=== PATIENT | female | born 1945 | race Caucasian/White ===

== ENCOUNTER 2022-06-04 13:52 | Inpatient (IN) | payer MEDICARE, OTHER ==
[~2022-06-04] VITALS: Ht 162.6 cm; Wt 47.2 kg
[2022-06-04 14:02] VITALS: BP_SYST 116
[2022-06-04] MEDS ORDERED: IPRATROPIUM/ALBUTEROL SULFATE 3 ML AMPUL.NEB (DUONEB) INH ONE (14:30)
[2022-06-04] MEDS ORDERED: methylPREDNISolone SOD SUCC/PF 62.5 MG/ML VIAL IVP ONE (14:30)
[2022-06-04] MEDS ORDERED: dilTIAZem HCL IVP 5 MG/ML VIAL IVP ONE ×2 (14:30→15:15)
[2022-06-04] MEDS ORDERED: NACL 0.9% 1,000 ML IV ONE (14:30)
[2022-06-04 15:22] LABS: HEMATOCRIT 41.9 % (36-48); MEAN CORPUSCULAR HEMOGLOBIN 30 pg (27-31); MEAN CORPUSCULAR HGB CONC 34 % (32-36); MEAN CORPUSCULAR VOLUME 88 fL (79.0-98.0); PLATELET COUNT (AUTO) 422 K/uL (130-430); RED BLOOD CELL COUNT(AUTO) 4.76 MIL/uL (4.2-6.2); RED CELL DISTRIBUTION WIDTH 13.4 % (9.0-15.0); WHITE BLOOD COUNT (AUTO) 25.6 K/uL (4.8-10.8)
[2022-06-04 15:30] LABS: ANION GAP 6 (5-15); CALCIUM 9.9 mg/dL (8.4-11.0); CHLORIDE 92 mmol/L (98-107); CREATININE 0.52 mg/dL (0.55-1.30); GLUCOSE 106 mg/dL (70-99); UREA NITROGEN, BLOOD 42 mg/dL (8-21)
[2022-06-04] MEDS ORDERED: CEFEPIME 2 GM in D5W 100 ML IV ONE (15:30)
[2022-06-04 15:31] LABS: INR 1.1 (0.8-1.2); PROTHROMBIN TIME 11.3 SECS (9.5-12.5)
[2022-06-04 15:44] LABS: ALANINE AMINOTRANSFERASE 12 U/L (12-78); ALBUMIN 2.9 g/dL (3.4-4.8); ASPARTATE AMINOTRANSFERASE 11 U/L (10-37); FREE T4 (FREE THYROXINE) 1.1 ng/dL (0.6-1.6); LIPASE 19 U/L (73-393); THYROID STIMULATING HORMONE 2.28 uIu/mL (0.34-4.82); TOTAL BILIRUBIN 0.6 mg/dL (0.0-1.0)
[2022-06-04 15:45] LABS: BAND % (MANUAL) 11 % (0-6); BASOPHILS % (MANUAL) 0 % (0-2); EOSINOPHILS % (MANUAL) 0 % (0-7); MONOCYTES % (MANUAL) 9 % (0-11)
[2022-06-04 16:10] LABS: BILIRUBIN,URINE 1+ (NEGATIVE); COLOR,URINE YELLOW (YELLOW); GLUCOSE,URINE NEGATIVE (NEGATIVE); KETONES,URINE 1+ (NEGATIVE); LEUKOCYTE ESTERASE ,URINE NEGATIVE (NEGATIVE); NITRITE, URINE NEGATIVE (NEGATIVE); PROTEIN URINE 1+ (NEGATIVE)
[2022-06-04 16:30] LABS: BLOOD, URINE TRACE (NEGATIVE)
[2022-06-04 16:31] LABS: CLARITY/URINE HAZY (CLEAR)
[2022-06-04 16:32] LABS: RBC,URINE 0-3 /HPF (0-3); WBC,URINE 0-3 /HPF (0-3)
[2022-06-04 16:33] LABS: BACTERIA,URINE FEW /HPF (None Seen); MUCUS,URINE None Seen /LPF (None Seen)
[2022-06-04 17:08] LABS: LYMPHOCYTES % (MANUAL) 0 % (20-46)
[2022-06-04] MEDS ORDERED: DIGOXIN 0.5 MG/2 ML AMP IVP ONE (18:30)
[2022-06-04] MEDS ORDERED: IPRATROPIUM/ALBUTEROL SULFATE 3 ML AMPUL.NEB (DUONEB) INH PRN (19:00)
[2022-06-04 20:27] VITALS: BP_SYST 129
[2022-06-04] MEDS: METHYLPREDNISOLONE SOD SUCC 40 MG/ML VIAL IVP SCH (21:50)
[2022-06-04] MEDS: FAMOTIDINE PF 20 MG/2 ML VIAL IVP SCH (22:06)
[2022-06-05] VITALS (7 sets, daily range): BP systolic 99–115
[2022-06-05] MEDS ORDERED: PIPERACILLIN/TAZOBACTAM 3.375 GM/VIAL (ZOSYN) IV ONE ×2 (00:28→06:10)
[2022-06-05] MEDS: PIPERACILLIN/TAZO 3.375/DEX-IS 50 ML IV SCH ×4 (00:30→19:21)
[2022-06-05] MEDS: IPRATROPIUM/ALBUTEROL SULFATE 3 ML AMPUL.NEB (DUONEB) INH SCH ×4 (01:34→19:02)
[2022-06-05] MEDS: METHYLPREDNISOLONE SOD SUCC 40 MG/ML VIAL IVP SCH ×3 (06:15→21:06)
[2022-06-05] MEDS: APIXABAN 2.5 MG TABLET PO SCH ×2 (09:00→21:03)
[2022-06-05 10:20] LABS: BASOPHILS % (AUTO) 0.1 % (0.0-2.0); HEMATOCRIT 36.8 % (36-48); HEMOGLOBIN 12.2 g/dL (12.0-16.0); LYMPHOCYTES # (AUTO) 0.4 K/uL (1.0-5.5); LYMPHOCYTES % (AUTO) 1.7 % (20.5-51.5); MEAN CORPUSCULAR HEMOGLOBIN 30 pg (27-31); MEAN CORPUSCULAR HGB CONC 33 % (32-36); MEAN CORPUSCULAR VOLUME 89 fL (79.0-98.0); MONOCYTES # (AUTO) 1.5 K/uL (0.0-1.0); MONOCYTES % (AUTO) 6.6 % (1.7-9.3); NEUTROPHILS # (AUTO) 21.1 K/uL (1.8-7.7); PLATELET COUNT (AUTO) 357 K/uL (130-430); RED BLOOD CELL COUNT(AUTO) 4.14 MIL/uL (4.2-6.2); RED CELL DISTRIBUTION WIDTH 13.4 % (9.0-15.0)
[2022-06-05 10:21] LABS: NEUTROPHILS % (AUTO) 91.6 % (40.0-70.0)
[2022-06-05] MEDS: D5/0.45 NS 1,000 ML IV SCH (10:24)
[2022-06-05 10:32] LABS: ANION GAP 3 (5-15); CALCIUM 9.6 mg/dL (8.4-11.0); CHLORIDE 100 mmol/L (98-107); CREATININE 0.41 mg/dL (0.55-1.30); GLUCOSE 138 mg/dL (70-99); UREA NITROGEN, BLOOD 28 mg/dL (8-21)
[2022-06-05 10:37] LABS: ALANINE AMINOTRANSFERASE 12 U/L (12-78); ALBUMIN 2.5 g/dL (3.4-4.8); ASPARTATE AMINOTRANSFERASE 9 U/L (10-37); TOTAL BILIRUBIN 0.4 mg/dL (0.0-1.0)
[2022-06-05] MEDS ORDERED: dilTIAZem HCL IVP 5 MG/ML VIAL IVP ONE (11:15)
[2022-06-05] MEDS: dilTIAZem HCL IVP 5 MG/ML VIAL IVP PRN (12:34)
[2022-06-05] MEDS ORDERED: METOPROLOL SUCCINATE 25 MG TAB.SR.24H (TOPROL XL) PO ONE (13:15)
[2022-06-05] MEDS ORDERED: iohexoL 350 mgI/mL, 100 ML INFUS..BTL IV ONE (13:35)
[2022-06-05] MEDS: FAMOTIDINE PF 20 MG/2 ML VIAL IVP SCH (21:06)
[2022-06-06] VITALS (17 sets, daily range): BP systolic 92–126
[2022-06-06] MEDS: IPRATROPIUM/ALBUTEROL SULFATE 3 ML AMPUL.NEB (DUONEB) INH SCH ×4 (00:52→20:08)
[2022-06-06] MEDS: PIPERACILLIN/TAZO 3.375/DEX-IS 50 ML IV SCH ×5 (05:17→23:55)
[2022-06-06] MEDS: METHYLPREDNISOLONE SOD SUCC 40 MG/ML VIAL IVP SCH ×3 (05:18→23:21)
[2022-06-06 05:32] LABS: BASOPHILS % (AUTO) 0.1 % (0.0-2.0); HEMATOCRIT 35.3 % (36-48); HEMOGLOBIN 11.5 g/dL (12.0-16.0); LYMPHOCYTES # (AUTO) 0.5 K/uL (1.0-5.5); LYMPHOCYTES % (AUTO) 2.3 % (20.5-51.5); MEAN CORPUSCULAR HEMOGLOBIN 29 pg (27-31); MEAN CORPUSCULAR HGB CONC 33 % (32-36); MEAN CORPUSCULAR VOLUME 89 fL (79.0-98.0); MONOCYTES # (AUTO) 1.2 K/uL (0.0-1.0); MONOCYTES % (AUTO) 5.5 % (1.7-9.3); NEUTROPHILS # (AUTO) 19.9 K/uL (1.8-7.7); NEUTROPHILS % (AUTO) 92.1 % (40.0-70.0); PLATELET COUNT (AUTO) 337 K/uL (130-430); RED BLOOD CELL COUNT(AUTO) 3.99 MIL/uL (4.2-6.2); RED CELL DISTRIBUTION WIDTH 13.3 % (9.0-15.0); WHITE BLOOD COUNT (AUTO) 21.6 K/uL (4.8-10.8)
[2022-06-06 06:02] LABS: ANION GAP 3 (5-15); CALCIUM 8.6 mg/dL (8.4-11.0); CHLORIDE 99 mmol/L (98-107); CREATININE 0.38 mg/dL (0.55-1.30); GLUCOSE 155 mg/dL (70-99); UREA NITROGEN, BLOOD 23 mg/dL (8-21)
[2022-06-06] MEDS: D5/0.45 NS 1,000 ML IV SCH (09:43)
[2022-06-06] MEDS: APIXABAN 2.5 MG TABLET PO SCH ×2 (09:44→23:19)
[2022-06-06] MEDS: METOPROLOL SUCCINATE 25 MG TAB.SR.24H (TOPROL XL) PO SCH (09:44)
[2022-06-06] MEDS: DILTIAZEM HCL 30 MG TABLET PO SCH ×2 (13:41→23:21)
[2022-06-06] MEDS: FAMOTIDINE PF 20 MG/2 ML VIAL IVP SCH (23:20)
[2022-06-07 00:23] VITALS: BP_SYST 101
[2022-06-07] MEDS: D5/0.45 NS 1,000 ML IV SCH (03:18)
[2022-06-07 05:59] LABS: BASOPHILS % (AUTO) 0.1 % (0.0-2.0); HEMATOCRIT 35.8 % (36-48); HEMOGLOBIN 11.9 g/dL (12.0-16.0); LYMPHOCYTES # (AUTO) 0.6 K/uL (1.0-5.5); LYMPHOCYTES % (AUTO) 3.4 % (20.5-51.5); MEAN CORPUSCULAR HEMOGLOBIN 29 pg (27-31); MEAN CORPUSCULAR HGB CONC 33 % (32-36); MEAN CORPUSCULAR VOLUME 88 fL (79.0-98.0); MONOCYTES # (AUTO) 1.1 K/uL (0.0-1.0); MONOCYTES % (AUTO) 6.1 % (1.7-9.3); NEUTROPHILS % (AUTO) 90.4 % (40.0-70.0); PLATELET COUNT (AUTO) 363 K/uL (130-430); RED BLOOD CELL COUNT(AUTO) 4.05 MIL/uL (4.2-6.2); RED CELL DISTRIBUTION WIDTH 13.6 % (9.0-15.0); WHITE BLOOD COUNT (AUTO) 18.8 K/uL (4.8-10.8)
[2022-06-07 06:17] LABS: ANION GAP 5 (5-15); CALCIUM 8.6 mg/dL (8.4-11.0); CHLORIDE 97 mmol/L (98-107); CREATININE 0.38 mg/dL (0.55-1.30); GLUCOSE 133 mg/dL (70-99); UREA NITROGEN, BLOOD 16 mg/dL (8-21)
[2022-06-07] MEDS: IPRATROPIUM/ALBUTEROL SULFATE 3 ML AMPUL.NEB (DUONEB) INH SCH ×4 (06:44→19:37)
[2022-06-07] MEDS: METHYLPREDNISOLONE SOD SUCC 40 MG/ML VIAL IVP SCH ×3 (06:47→21:12)
[2022-06-07] MEDS: DILTIAZEM HCL 30 MG TABLET PO SCH ×3 (06:47→21:13)
[2022-06-07] MEDS: PIPERACILLIN/TAZO 3.375/DEX-IS 50 ML IV SCH ×4 (06:47→23:32)
[2022-06-07 07:46] VITALS: BP_SYST 127
[2022-06-07 08:00] VITALS: BP_SYST 113
[2022-06-07] MEDS: METOPROLOL SUCCINATE 25 MG TAB.SR.24H (TOPROL XL) PO SCH (08:55)
[2022-06-07] MEDS: APIXABAN 2.5 MG TABLET PO SCH ×2 (08:59→21:14)
[2022-06-07] MEDS ORDERED: ACETYLCYSTEINE 10% 4 ML VIAL (RT) INH SCH (09:45)
[2022-06-07] MEDS ORDERED: BENZOCAINE/MENTHOL 1 EACH LOZENGE PO PRN (09:45)
[2022-06-07] MEDS: ACETYLCYSTEINE 20% 4 ML VIAL (RT) INH SCH ×3 (11:00→19:00)
[2022-06-07 11:22] VITALS: BP_SYST 125
[2022-06-07 15:23] VITALS: BP_SYST 113
[2022-06-07 20:00] VITALS: BP_SYST 118
[2022-06-07] MEDS: FAMOTIDINE PF 20 MG/2 ML VIAL IVP SCH (21:13)
[2022-06-08 00:33] VITALS: BP_SYST 113
[2022-06-08] MEDS: D5/0.45 NS 1,000 ML IV SCH ×2 (04:58→18:30)
[2022-06-08] MEDS: DILTIAZEM HCL 30 MG TABLET PO SCH ×4 (05:48→23:32)
[2022-06-08] MEDS: METHYLPREDNISOLONE SOD SUCC 40 MG/ML VIAL IVP SCH ×3 (05:48→21:10)
[2022-06-08] MEDS: PIPERACILLIN/TAZO 3.375/DEX-IS 50 ML IV SCH ×4 (05:49→23:30)
[2022-06-08] MEDS: ACETYLCYSTEINE 20% 4 ML VIAL (RT) INH SCH ×4 (07:29→23:49)
[2022-06-08] MEDS: IPRATROPIUM/ALBUTEROL SULFATE 3 ML AMPUL.NEB (DUONEB) INH SCH ×5 (07:30→23:44)
[2022-06-08 08:00] VITALS: BP_SYST 130
[2022-06-08] MEDS: METOPROLOL SUCCINATE 25 MG TAB.SR.24H (TOPROL XL) PO SCH (08:15)
[2022-06-08] MEDS: APIXABAN 2.5 MG TABLET PO SCH ×2 (08:15→21:09)
[2022-06-08 11:22] VITALS: BP_SYST 118
[2022-06-08] MEDS ORDERED: ACETYLCYSTEINE 20% 4 ML VIAL (RT) INH SCH (15:00)
[2022-06-08 15:20] VITALS: BP_SYST 111
[2022-06-08 20:00] VITALS: BP_SYST 128
[2022-06-08] MEDS: FAMOTIDINE PF 20 MG/2 ML VIAL IVP SCH (21:10)
[2022-06-08] MEDS: dilTIAZem HCL IVP 5 MG/ML VIAL IVP PRN (21:12)
[2022-06-09] VITALS: BP_SYST 139
[2022-06-09] MEDS: PIPERACILLIN/TAZO 3.375/DEX-IS 50 ML IV SCH ×3 (06:03→17:21)
[2022-06-09] MEDS: METHYLPREDNISOLONE SOD SUCC 40 MG/ML VIAL IVP SCH ×3 (06:05→21:42)
[2022-06-09] MEDS: DILTIAZEM HCL 30 MG TABLET PO SCH ×3 (06:05→17:22)
[2022-06-09 06:24] LABS: BASOPHILS % (AUTO) 0.1 % (0.0-2.0); HEMATOCRIT 38.4 % (36-48); HEMOGLOBIN 12.7 g/dL (12.0-16.0); LYMPHOCYTES # (AUTO) 0.5 K/uL (1.0-5.5); LYMPHOCYTES % (AUTO) 3.1 % (20.5-51.5); MEAN CORPUSCULAR HEMOGLOBIN 29 pg (27-31); MEAN CORPUSCULAR HGB CONC 33 % (32-36); MEAN CORPUSCULAR VOLUME 88 fL (79.0-98.0); MONOCYTES % (AUTO) 5.8 % (1.7-9.3); NEUTROPHILS # (AUTO) 15.6 K/uL (1.8-7.7); PLATELET COUNT (AUTO) 354 K/uL (130-430); RED BLOOD CELL COUNT(AUTO) 4.36 MIL/uL (4.2-6.2); RED CELL DISTRIBUTION WIDTH 13.5 % (9.0-15.0); WHITE BLOOD COUNT (AUTO) 17.2 K/uL (4.8-10.8)
[2022-06-09] MEDS: ACETYLCYSTEINE 20% 4 ML VIAL (RT) INH SCH ×3 (07:00→19:00)
[2022-06-09 07:02] LABS: ANION GAP 2 (5-15); CALCIUM 8.5 mg/dL (8.4-11.0); CHLORIDE 99 mmol/L (98-107); CREATININE 0.43 mg/dL (0.55-1.30); GLUCOSE 148 mg/dL (70-99); UREA NITROGEN, BLOOD 12 mg/dL (8-21)
[2022-06-09] MEDS: IPRATROPIUM/ALBUTEROL SULFATE 3 ML AMPUL.NEB (DUONEB) INH SCH ×3 (07:24→19:25)
[2022-06-09 07:44] VITALS: BP_SYST 145
[2022-06-09] MEDS: METOPROLOL SUCCINATE 25 MG TAB.SR.24H (TOPROL XL) PO SCH (08:42)
[2022-06-09] MEDS: APIXABAN 2.5 MG TABLET PO SCH ×2 (08:43→20:28)
[2022-06-09 11:21] VITALS: BP_SYST 126
[2022-06-09] MEDS: dilTIAZem HCL IVP 5 MG/ML VIAL IVP PRN ×2 (14:15→20:31)
[2022-06-09 15:29] VITALS: BP_SYST 135
[2022-06-09] MEDS: D5/0.45 NS 1,000 ML IV SCH (16:07)
[2022-06-09 21:00] VITALS: BP_SYST 136; BP_SYST 98
[2022-06-09] MEDS: FAMOTIDINE PF 20 MG/2 ML VIAL IVP SCH (21:41)
[2022-06-10] MEDS: PIPERACILLIN/TAZO 3.375/DEX-IS 50 ML IV SCH ×5 (00:29→23:34)
[2022-06-10] MEDS: DILTIAZEM HCL 30 MG TABLET PO SCH ×5 (00:30→23:35)
[2022-06-10] MEDS: ACETYLCYSTEINE 20% 4 ML VIAL (RT) INH SCH ×4 (01:00→19:00)
[2022-06-10] MEDS: IPRATROPIUM/ALBUTEROL SULFATE 3 ML AMPUL.NEB (DUONEB) INH SCH ×4 (01:00→19:31)
[2022-06-10] MEDS: METHYLPREDNISOLONE SOD SUCC 40 MG/ML VIAL IVP SCH ×3 (05:41→21:05)
[2022-06-10 06:00] VITALS: BP_SYST 133
[2022-06-10 07:21] LABS: BASOPHILS # (AUTO) 0.1 K/uL (0.0-0.2); BASOPHILS % (AUTO) 0.2 % (0.0-2.0); HEMATOCRIT 41.7 % (36-48); HEMOGLOBIN 13.6 g/dL (12.0-16.0); LYMPHOCYTES # (AUTO) 0.8 K/uL (1.0-5.5); LYMPHOCYTES % (AUTO) 3.6 % (20.5-51.5); MEAN CORPUSCULAR HEMOGLOBIN 29 pg (27-31); MEAN CORPUSCULAR HGB CONC 33 % (32-36); MEAN CORPUSCULAR VOLUME 89 fL (79.0-98.0); MONOCYTES # (AUTO) 0.9 K/uL (0.0-1.0); MONOCYTES % (AUTO) 4.2 % (1.7-9.3); NEUTROPHILS # (AUTO) 19.6 K/uL (1.8-7.7); PLATELET COUNT (AUTO) 380 K/uL (130-430); RED CELL DISTRIBUTION WIDTH 13.8 % (9.0-15.0); WHITE BLOOD COUNT (AUTO) 21.3 K/uL (4.8-10.8)
[2022-06-10 07:23] LABS: ANION GAP 0 (5-15); C-REACTIVE PROTEIN QUANT 1.2 mg/dL (0-0.5); CALCIUM 8.6 mg/dL (8.4-11.0); CHLORIDE 98 mmol/L (98-107); CREATININE 0.46 mg/dL (0.55-1.30); GLUCOSE 139 mg/dL (70-99); UREA NITROGEN, BLOOD 14 mg/dL (8-21)
[2022-06-10 07:54] LABS: ERYTHROCYTE SEDIMENTATION RATE 18 MM/HR (0-20)
[2022-06-10 08:32] VITALS: BP_SYST 144
[2022-06-10] MEDS: METOPROLOL SUCCINATE 25 MG TAB.SR.24H (TOPROL XL) PO SCH (10:09)
[2022-06-10] MEDS: APIXABAN 2.5 MG TABLET PO SCH ×2 (10:10→21:06)
[2022-06-10] MEDS: D5/0.45 NS 1,000 ML IV SCH (10:26)
[2022-06-10 12:45] VITALS: BP_SYST 130
[2022-06-10] MEDS: dilTIAZem HCL IVP 5 MG/ML VIAL IVP PRN ×2 (15:02→21:19)
[2022-06-10 15:05] VITALS: BP_SYST 126
[2022-06-10 20:15] VITALS: BP_SYST 117
[2022-06-10] MEDS: FAMOTIDINE PF 20 MG/2 ML VIAL IVP SCH (21:05)
[2022-06-11 00:01] VITALS: BP_SYST 134
[2022-06-11] MEDS: ACETYLCYSTEINE 20% 4 ML VIAL (RT) INH SCH ×4 (01:00→19:00)
[2022-06-11] MEDS: PIPERACILLIN/TAZO 3.375/DEX-IS 50 ML IV SCH (05:49)
[2022-06-11] MEDS: METHYLPREDNISOLONE SOD SUCC 40 MG/ML VIAL IVP SCH (05:49)
[2022-06-11 06:00] VITALS: BP_SYST 130
[2022-06-11] MEDS: DILTIAZEM HCL 30 MG TABLET PO SCH ×3 (06:01→17:29)
[2022-06-11 06:29] LABS: HEMATOCRIT 39.3 % (36-48); MEAN CORPUSCULAR HEMOGLOBIN 29 pg (27-31); MEAN CORPUSCULAR HGB CONC 33 % (32-36); MEAN CORPUSCULAR VOLUME 88 fL (79.0-98.0); PLATELET COUNT (AUTO) 358 K/uL (130-430); RED BLOOD CELL COUNT(AUTO) 4.45 MIL/uL (4.2-6.2); RED CELL DISTRIBUTION WIDTH 13.2 % (9.0-15.0); WHITE BLOOD COUNT (AUTO) 21.7 K/uL (4.8-10.8)
[2022-06-11 07:03] LABS: ALANINE AMINOTRANSFERASE 50 U/L (12-78); ANION GAP 0 (5-15); ASPARTATE AMINOTRANSFERASE 22 U/L (10-37); C-REACTIVE PROTEIN QUANT 0.5 mg/dL (0-0.5); CALCIUM 8.6 mg/dL (8.4-11.0); CHLORIDE 99 mmol/L (98-107); CREATININE 0.53 mg/dL (0.55-1.30); GLUCOSE 152 mg/dL (70-99); TOTAL BILIRUBIN 0.3 mg/dL (0.0-1.0); UREA NITROGEN, BLOOD 15 mg/dL (8-21)
[2022-06-11] MEDS: IPRATROPIUM/ALBUTEROL SULFATE 3 ML AMPUL.NEB (DUONEB) INH SCH ×4 (07:39→21:19)
[2022-06-11 07:54] LABS: ERYTHROCYTE SEDIMENTATION RATE 9 MM/HR (0-20)
[2022-06-11 08:00] VITALS: BP_SYST 141
[2022-06-11] MEDS: METOPROLOL SUCCINATE 25 MG TAB.SR.24H (TOPROL XL) PO SCH (08:28)
[2022-06-11] MEDS: APIXABAN 2.5 MG TABLET PO SCH (08:29)
[2022-06-11 09:57] LABS: BASOPHILS % (MANUAL) 0 % (0-2); EOSINOPHILS % (MANUAL) 0 % (0-7); LYMPHOCYTES % (MANUAL) 6 % (20-46); MONOCYTES % (MANUAL) 9 % (0-11)
[2022-06-11 11:21] VITALS: BP_SYST 139
[2022-06-11] MEDS: dilTIAZem HCL IVP 5 MG/ML VIAL IVP PRN ×2 (14:33→18:56)
[2022-06-11 15:06] VITALS: BP_SYST 135
[2022-06-11] MEDS ORDERED: CAR30 PO (16:26)
[2022-06-11] MEDS ORDERED: APIX2.5T PO (16:26)
[2022-06-11] MEDS ORDERED: METO-540 PO (16:26)
[2022-06-11 20:08] VITALS: BP_SYST 135
[2022-06-12] MEDS ORDERED: METHYLPREDNISOLONE SOD SUCC 40 MG/ML VIAL IVP SCH (09:00)
== END 2022-06-11 20:30 | disposition home or self-care (01) | DRG 871 ==
LOC: SED 13:52 → UNDOADMIN 19:36 → SIC 19:36 → STU 06-06 12:39
PROVIDERS: ADMIT Specialist; ATTEND Specialist
PROC: 5A09357 Assistance with Respiratory Ventilation, Less than 24 Consecutive Hours, Continuous Positive Airway Pressure (ICD-10-PCS; principal; 2022-06-05)
PROC: 5A09357 Assistance with Respiratory Ventilation, Less than 24 Consecutive Hours, Continuous Positive Airway Pressure (ICD-10-PCS; 2022-06-06)
DX: A41.9 Sepsis, unspecified organism (principal); E43 Unspecified severe protein-calorie malnutrition; J18.9 Pneumonia, unspecified organism; J96.22 Acute and chronic respiratory failure with hypercapnia; J96.21 Acute and chronic respiratory failure with hypoxia; G92.8 Other toxic encephalopathy; Z68.1 Body mass index [BMI] 19.9 or less, adult; J44.0 Chronic obstructive pulmonary disease with (acute) lower respiratory infection; J44.1 Chronic obstructive pulmonary disease with (acute) exacerbation; Z20.822 Contact with and (suspected) exposure to COVID-19; I48.91 Unspecified atrial fibrillation; E03.9 Hypothyroidism, unspecified; J20.9 Acute bronchitis, unspecified; D64.9 Anemia, unspecified; E88.09 Other disorders of plasma-protein metabolism, not elsewhere classified; M19.90 Unspecified osteoarthritis, unspecified site; I12.9 Hypertensive chronic kidney disease with stage 1 through stage 4 chronic kidney disease, or unspecified chronic kidney disease; N18.9 Chronic kidney disease, unspecified; J43.9 Emphysema, unspecified; Z88.2 Allergy status to sulfonamides; Z79.01 Long term (current) use of anticoagulants; Z87.891 Personal history of nicotine dependence; Z99.81 Dependence on supplemental oxygen
CPT/HCPCS: 36415; 36600; 71045; 71275; 76376; 80048; 80053; 80162; 81000; 82803-TC; 82810-TC; 83605; 83690; 83735; 83880; 84439; 84443; 84484; 85007; 85025; 85027; 85379; 85610-TC; 85651-TC; 85730-TC; 86140; 87040; 87081; 87086; 92610-GN; 93005; 93306; 94640; 94660; 94668; 94760; 96361; 96374; 96375; 97110-GP; 97112-GP; 97116-GP; 97530-GP; 99291; G0378; J0692; J1030; J1160; J2543; J2930; J3490; J7060; J7608; Q9967